=== PATIENT | female | born 1950 ===

== ENCOUNTER 2020-11-15 20:52 | Emergency (ER) | payer MEDICARE, BC ==
[~2020-11-15] VITALS: Ht 170.2 cm; Wt 100.0 kg
[2020-11-15 21:22] VITALS: BP 166/81
[2020-11-15] MEDS ORDERED: CEPH-585 PO (21:44)
[2020-11-15] MEDS ORDERED: cephalexin 250mg capsule PO ONE (21:45)
== END 2020-11-15 22:05 | disposition left against medical advice (07) ==
LOC: ER 20:55
DX: R21 Rash and other nonspecific skin eruption (principal)
CPT/HCPCS: 99283